=== PATIENT | male | born 1975 | race Caucasian/White ===

== ENCOUNTER 2016-10-07 07:35 | Emergency (ER) | payer BC ==
[2016-10-07] MEDS ORDERED: Lidocaine 1% 10 MG/ML - 20 ML VIAL SUBCUT ONE (07:44)
[2016-10-07] MEDS ORDERED: Lidocaine Inj 1% 20 ML ONE (07:50)
[2016-10-07 07:57] VITALS: RESP 16; TEMP 97.7
[2016-10-07] MEDS ORDERED: BACITRACIN 0.9 GM PACKET OINT TOPICAL ONE (08:11)
--- NOTE | 2016-10-07 08:18 | PDOC ---
Hand / Wrist Injury HPI - General Chief Complaint: Integumentary Stated Complaint: SPLINTER UNDER LEFT THUMBNAIL Date Seen by Provider: 10/07/16 Time Seen by Provider: 07:40 Source: POSITIVE: Patient Exam Limitations: POSITIVE: No limitations Nurse's Notes Reviewed & Considered: Yes - History of Present Illness Initial Comments: The patient is a 41-year-old male. 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 He lodged a foreign body under the radial aspect of his left thumbnail yesterday while doing his excavation. He complains of pain over the tip of the left thumb under the nail, radial aspect. His tetanus vaccination status is current. No sensory, motor or vascular symptoms. Have you received a tetanus shot in the past 10 years?: Yes Body Location Affected: REPORTS: Upper Extremity (L) Timing: REPORTS: Abrupt Duration: <24 hours Severity: Moderate Location at Time of Onset: REPORTS: Other (Archaeological excavation site) Context: REPORTS: Other (Foreign body under left thumbnail) Location of Injury: REPORTS: Left, 1st Finger Quality: REPORTS: "Pain" Modifying Factors: REPORTS: Other (Exacerbated by direct palpation) Associated Symptoms: DENIES: Arm (R), Arm (L), Tingling Distally, Numbness Distally, Loss of Feeling, Loss of Power, Other Any Prior Injuries Related to Current Complaint?: No - Patient Home Medications Home Medications: Home Medications NK [No Home Medications Reported] 10/07/16 - Patient Allergies Allergies/Adverse Reactions: Allergies Allergy/AdvReac Type Severity Reaction Status Date / Time No Known Allergies Allergy Unverified 10/07/16 07:43 Past Medical History - heen HEENT History: Denies History Cardiovascular History: Denies History Respiratory History: Denies History Gastrointestinal History: Denies History Genitourinary History: Denies History Endocrine History: Denies History Musculoskeletal History: Denies History Prosthesis or Implant: No Neurological History: Denies History Blood Disorders: Denies History Psychiatric History: Denies History History of Sexually Transmitted Diseases: No Male Reproductive History: Denies History Cancer History: Denies History In Past Year Been Physically Harmed or Verbally Threatened: No History of MDRO: No History of Other Communicable Diseases: No Tobacco Use: Current Every Day Smoker Alcohol Use: None Substance Use Type: None Previous Surgical History: No Significant Family History: No pertinent family hx Past Medical History Reviewed: Reviewed - Changes Made ROS - Limitations ROS Limitations: No Limitations Constitution: REPORTS: Denies Symptoms Cardiovascular: REPORTS: Denies Cardiac Symptoms Respiratory: REPORTS: Denies Resp Symptoms Neurological: REPORTS: Denies Neuro Symptoms Gastrointestinal: REPORTS: Denies GI Symptoms Endocrine: REPORTS: Denies Symptoms Musculoskeletal: REPORTS: Recent Injury (Pain distal aspect of left thumb; see diagram) Genitourinary: REPORTS: Denies Symptoms Eyes: REPORTS: Denies Symptoms ENT: REPORTS: Denies Symptoms Skin: REPORTS: Denies Skin Symptoms Lympathic: REPORTS: Denies Lympathic Symptoms Immunologic: POSITIVE: Denies Symptoms Psychiatric: POSITIVE: Denies Psych Symptoms Hand / Wrist Injury Exam - General Appearance General Appearance: POSITIVE: Alert, Cooperative, No Acute Distress. NEGATIVE: No Evidence of Trauma - Extremities Upper Extremity: POSITIVE: Normal ROM, Soft Tissue Tenderness, Uninjured Above Wrist, See Diagram. NEGATIVE: Normal Inspection, Non-Tender, No Evidence of FB , Bony Tenderness, Swelling, Ecchymosis, Deformity, Complete Nail Injury, Partial Avulsion, Limited ROM, Limited ROM d/t Pain, Ltd. ROM d/t Funct. Def., Snuff Box Position Tender, Axial Thumb Load Pain Neurovascular / Tendon: POSITIVE: Sensation Normal, Motor Normal, No Vascular Compromise, Tendon Function Normal Skin: POSITIVE: Warm, Dry - Respiratory / CVS Respiratory / CVS: POSITIVE: Chest Non Tender, No Ecchymosis, Breath Sounds Normal, No Respiratory Distress, Heart Sounds Normal, Regular Rate/Rhythm Peripheral Pulses: Radial (R): 2+, Radial (L): 2+ Images - Hands Hand: 1 - Subungual foreign body, left thumb 2 - Subungual foreign body left thumb Procedure - Additional Procedures Additional Procedures: Other (After digital block with 1% lidocaine, the nail over the foreign body was sterilely unroofed and the foreign body extracted. Bacitracin dressing was placed over the unroofed portion of the nail and a sterile dressing was placed.) Hand / Wrist Injury Progress - Patient's Progress Pain Medication Addressed: POSITIVE: Yes (recommended Advil or Tylenol) School/Work Release Addressed: POSITIVE: Not Applicable Re-Examine Time: 08:09 Re-Examine Comment: Foreign body removal complete Status: POSITIVE: Improved, Re-Examined (foreign body removal complete) - Consult Counseled: POSITIVE: Patient, RE: DX, RE: Need for F/U Patient Care Time - Estimated PCT Patient Care Time (In Minutes): 30 Vital Signs - Recent Vital Signs Vital Signs: Vital Signs (Last 8 hours) Temp Pulse Resp Pulse Ox 10/07/16 07:52 97.7 F 83 16 96 - VS Reviewed Vital Signs Reviewed: Yes Discharge Clinical Impression: Foreign body (FB) in soft tissue Discharge Disposition: Discharged to Home Condition: Fair Patient Instructions Given at Discharge: Soft Tissue Foreign Body (ED) Additional Instructions: The foreign body under your left thumb nail has been removed. I did unroof the nail over the foreign body; this will gradually grow back. Wash wound well with soap and water daily and apply bacitracin or Neosporin ointment daily. Elevate hand. Return here anytime if condition worsens in any way. Advil or Tylenol for discomfort. Follow Up With: NONE,NONE [Primary Care Provider] - (Instructions as above. Follow-up with your primary care provider. Return here anytime if condition worsens in any way.)
== END 2016-10-07 08:17 | disposition home or self-care (01) ==
LOC: ER 07:35
DX: M79.5 Residual foreign body in soft tissue (principal); W45.8XXA Other foreign body or object entering through skin, initial encounter; Y99.0 Civilian activity done for income or pay
CPT/HCPCS: 96372; 99282